=== PATIENT | female | born 1965 | race Caucasian/White ===

== ENCOUNTER 2017-05-28 15:46 | Observation (INO) | payer MEDICAID ==
[~2017-05-28] VITALS: Ht 170.2 cm; Wt 119.8 kg
[~2017-05-28 15:46] MED LIST: ATORVASTATIN CA10 M1 PO; CETIRIZINE HCL10 MG PO; FLEXERIL10 MG PO; FLONASE 50 MCG16 GM; LISINOPRIL-HCTZ 20-1 PO; MECLIZINE HYDRO25 MG PO; NAPROSYN 500MG500 MG PO; OMEPRAZOLE20 MG PO; PHENERGAN 25MG.25 M1 PO; SPRINTEC 35 MCG1 TAB PO
[2017-05-28 15:47] VITALS: BP 136/84
[2017-05-28 16:06] LABS: HEMOGLOBIN 14.1 g/dL (12.2-16.2); LYMPH # 3.3 K/mm3 (0.7-4.5); LYMPH % 31.6 % (10-50.0)
--- NOTE | 2017-05-28 16:08 | Emergency Room Report ---
History of Present Illness Time Seen by [id number] Presenting Problem in Triage Pt arrived:Walked Presenting Problem:PT C/O PAIN UNDER THE RIGHT ARM THAT GOES ACROSS HER CHEST THAT CAME ON SUDDENLY AROUND 1430. 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 N Clinical Suspician of Infection? N Mental Status: 1 - Regular (Normal Baseline) Sepsis Risk:Low Sepsis Risk Have you (or family members/close friends) recently traveled outside the [place]? N If Yes, where/when: Have you had exposure to infectious disease within the past month? N TB? Other? Specify: Patient with muscle spasm, sharp pain on right today, with brief indigestion, self-resolving; pain starts on the right and moves to substernal area. No vomiting or diaphoresis, no calf pain, no syncope or palpitations, no SOB. Reports dad with hx [place], patient has HTN and hyperlipidemia, does not smoke, does not have DM, is obese. No known hx CAD. Onset was 1430 today. No cough. ALLERGIES Coded Allergies: No Known Allergies (05/28/17) Home Medications Reported Medications Atorvastatin Calcium 10 MG PO DAILY #30 [LISINOPRIL-HCTZ 20-1] 1 TAB PO DAILY #30 History Medical History General CAD? No Angina: No GA: No Hypertension? Yes Hyperlipidemia? Yes CHF? No DVT? No PE? No COPD? No Asthma? No Anemia? No GERD? No Gastric ulcers? No GI Bleed? No Hernia? No Thyroid Problems? No Hypothyroidism? No CVA? No Seizures? No Diabetes? No Renal Insuffiency? No End Stage Renal Disease? No UTI? No Stones? No BPH? No GB Disease: Yes Nephritic Syndrome? No Asplenia? No Hepatitis? No Sickle Cell Disease? No Arthritis? No Migraines? No Cataracts? No Glaucoma? No MRSA? No HIV? No TB? No Anxiety? No Depression? No Cancer? 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 Hx LMP N/A Family History Family Hx Family Hx Insignificant No Diabetes Yes CAD Yes (dad [place]) Hypertension Yes Hyperlipidemia No Cancer Yes TB No Social History Smoking Hx Smoker: Never Smoker Tobacco: No Packs/day < 1 Pack Alcohol Alcohol: No Review of Systems All Other Systems Reviewed and Negative Cardiovascular see HPI Gastrointestinal see HPI Musculoskeletal see HPI Physical Exam Vital Signs Vital Signs Date Time Temp Pulse Resp B/P Pulse O2 O2 Flow FiO2 Ox Delivery Rate 05/28 1721 22 05/28 1715 61 16 132/72 95 05/28 1547 98.2 65 16 136/84 95 General Appearance normal appearance, WD/WN, no apparent distress Eye Exam - bilateral eye normal exam, bilateral eye PERRL, bilateral eye EOMI Neck normal inspection, non-tender, supple, full range of motion Respiratory Status Yes: trachea midline, chest symmetrical, non tender chest. No: respiratory distress, tender on palpation, use of accessory muscles, pain on inspiration, pain on expiration, productive cough, non productive cough. Lung Sounds bilateral: normal breath sounds, lungs clear. Cardiovascular normal exam, regular rate/rhythm, no peripheral edema, no gallop, no JVD, no murmur, no rub, normal peripheral pulses Peripheral Pulses Pulses normal Yes Gastrointestinal normal bowel sounds, normal exam, non tender, soft, no organomegaly, no pulsatile mass, no guarding, no rebound Extremities non-tender, normal range of motion, normal inspection, normal capillary refill, no calf tenderness, no pedal edema Strength 5 Upper Ext (L), 5 Upper Ext (R), 5 Lower Ext (L), 5 Lower Ext (R) Neurologic alert, normal exam, no motor/sensory deficits, oriented x 3 Glascow Coma Scale Glascow Coma Scale Response Value EYE response: 4 Spontaneously 4 MOTOR response: 6 OBEYS 6 VERBAL response: 5 Oriented & Converses 5 Total 15 Skin intact, normal color, warm/dry Lymphatic no adenopathy Medical Decision Making LABS/Meds/Orders Pt receiving controlled substance in ED? No Results/Orders Laboratory Tests 05/28/17 1600: Sodium 141, Potassium 4.0, Chloride 105, Carbon Dioxide 27, BUN 14, Creatinine 1.0, Estimated Creat Clear 123, Estimated GFR (MDRD) 58 L, Glucose 91, Calcium 8.8, Total Bilirubin 0.5, AST 27, ALT 33, Alkaline Phosphatase 61, Creatine Kinase 113, CK-MB (CK-2) Rel Index 0.4, CK and CKMB Interp < 0.5, Troponin I < 0.02, Total Protein 7.7, Albumin 4.0, Globulin 3.7 H, Albumin/Globulin Ratio 1.1, WBC 10.5, RBC 4.71, Hgb 14.1, Hct 42.7, MCV 90.5, RDW 14.4, Plt Count 229, MPV 9.0, Gran % 59.5, Gran # 6.3, Lymphocytes % 31.6, Monocytes % 6.1, Eosinophils % 2.3, Basophils % 0.6, Lymphocytes # 3.3, Monocytes # 0.6, Eosinophils # 0.2, Basophils # 0.1, PUBS MCHC 33.1, MCH 30.0 Current Medication Orders Sig/Aurelia Start time Last Medication Dose Route Stop Time Status Admin Morphine Sulfate 2 MG ONCE ONE 05/28 1730 DC IV 05/28 1731 Nitroglycerin 0.4 MG ONCE ONE 05/28 1730 DC 05/28 SL 05/28 1731 1721 Ondansetron HCl 4 MG ONCE ONE 05/28 1730 DC IV 05/28 1731 Nitroglycerin 0 .STK-MED ONE 05/28 1720 DC SL Aspirin 324 MG ONCE ONE 05/28 1630 DC 05/28 PO 05/28 1631 1628 Aspirin 0 .STK-MED ONE 05/28 1628 DC .ROUTE Sodium Chloride 10 ML PRN PRN 05/28 1600 AC IV 05/29 1556 Orders Procedure Date/time Status TROPONIN I 05/28 1830 Active Decision to admit 05/28 1728 Active ELECTROCARDIOGRAM REQUEST 05/28 1556 Active IV SALINE LOCK 05/28 1556 Active CBC WITH AUTO DIFF 05/28 1556 Complete CARDIAC ENZYMES 05/28 1556 Complete CHEM 12 PROFILE 05/28 1556 Complete 12 LEAD EKG-BESSON (INITIAL) 05/28 UNK Active XRAY/CT/US XRAY/CT/US XRAY chest XR interpretation by reviewed by me Xray Results normal/NAD, no infiltrates, normal heart size, no hematoma seen, normal lung inflation gautam Consult MD Physician Consult Time Called 1718 Reason Pt. Condition Progress ED Progress Notes Date 05/28/17 Time 1741 Comment Positive relief with NTG SL x 1 Departure Departure Time of Disposition 1741 Disposition Still a Patient Clinical Impression Primary Impression: Chest pain Qualifiers: Chest pain type: unspecified Qualified Code: R07.9 - Chest pain, unspecified Condition STABLE Referrals ASIA GUTIERREZ (Family) ED Critical Care Critical Care No
--- NOTE | 2017-05-28 16:08 | Emergency Room Report ---
History of Present Illness Time Seen by [id number] Presenting Problem in Triage Pt arrived:Walked Presenting Problem:PT C/O PAIN UNDER THE RIGHT ARM THAT GOES ACROSS HER CHEST THAT CAME ON SUDDENLY AROUND 1430. 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 N Clinical Suspician of Infection? N Mental Status: 1 - Regular (Normal Baseline) Sepsis Risk:Low Sepsis Risk Have you (or family members/close friends) recently traveled outside the [place]? N If Yes, where/when: Have you had exposure to infectious disease within the past month? N TB? Other? Specify: Patient with muscle spasm, sharp pain on right today, with brief indigestion, self-resolving; pain starts on the right and moves to substernal area. No vomiting or diaphoresis, no calf pain, no syncope or palpitations, no SOB. Reports dad with hx [place], patient has HTN and hyperlipidemia, does not smoke, does not have DM, is obese. No known hx CAD. Onset was 1430 today. No cough. ALLERGIES Coded Allergies: No Known Allergies (05/28/17) Home Medications Reported Medications Atorvastatin Calcium 10 MG PO DAILY #30 [LISINOPRIL-HCTZ 20-1] 1 TAB PO DAILY #30 History Medical History General CAD? No Angina: No NM: No Hypertension? Yes Hyperlipidemia? Yes CHF? No DVT? No PE? No COPD? No Asthma? No Anemia? No GERD? No Gastric ulcers? No GI Bleed? No Hernia? No Thyroid Problems? No Hypothyroidism? No CVA? No Seizures? No Diabetes? No Renal Insuffiency? No End Stage Renal Disease? No UTI? No Stones? No BPH? No GB Disease: Yes Nephritic Syndrome? No Asplenia? No Hepatitis? No Sickle Cell Disease? No Arthritis? No Migraines? No Cataracts? No Glaucoma? No MRSA? No HIV? No TB? No Anxiety? No Depression? No Cancer? 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 N/A Family History Family Hx Family Hx Insignificant No Diabetes Yes CAD Yes (dad [place]) Hypertension Yes Hyperlipidemia No Cancer Yes TB No Social History Smoking Hx Smoker: Never Smoker Tobacco: No Packs/day < 1 Pack Alcohol Alcohol: No Review of Systems All Other Systems Reviewed and Negative Cardiovascular see HPI Gastrointestinal see HPI Musculoskeletal see HPI Physical Exam Vital Signs Vital Signs Date Time Temp Pulse Resp B/P Pulse O2 O2 Flow FiO2 Ox Delivery Rate 05/28 1721 22 05/28 1715 61 16 132/72 95 05/28 1547 98.2 65 16 136/84 95 General Appearance normal appearance, WD/WN, no apparent distress Eye Exam - bilateral eye normal exam, bilateral eye PERRL, bilateral eye EOMI Neck normal inspection, non-tender, supple, full range of motion Respiratory Status Yes: trachea midline, chest symmetrical, non tender chest. No: respiratory distress, tender on palpation, use of accessory muscles, pain on inspiration, pain on expiration, productive cough, non productive cough. Lung Sounds bilateral: normal breath sounds, lungs clear. Cardiovascular normal exam, regular rate/rhythm, no peripheral edema, no gallop, no JVD, no murmur, no rub, normal peripheral pulses Peripheral Pulses Pulses normal Yes Gastrointestinal normal bowel sounds, normal exam, non tender, soft, no organomegaly, no pulsatile mass, no guarding, no rebound Extremities non-tender, normal range of motion, normal inspection, normal capillary refill, no calf tenderness, no pedal edema Strength 5 Upper Ext (L), 5 Upper Ext (R), 5 Lower Ext (L), 5 Lower Ext (R) Neurologic alert, normal exam, no motor/sensory deficits, oriented x 3 Glascow Coma Scale Glascow Coma Scale Response Value EYE response: 4 Spontaneously 4 MOTOR response: 6 OBEYS 6 VERBAL response: 5 Oriented & Converses 5 Total 15 Skin intact, normal color, warm/dry Lymphatic no adenopathy Medical Decision Making LABS/Meds/Orders Pt receiving controlled substance in ED? No Results/Orders Laboratory Tests 05/28/17 1600: Sodium 141, Potassium 4.0, Chloride 105, Carbon Dioxide 27, BUN 14, Creatinine 1.0, Estimated Creat Clear 123, Estimated GFR (MDRD) 58 L, Glucose 91, Calcium 8.8, Total Bilirubin 0.5, AST 27, ALT 33, Alkaline Phosphatase 61, Creatine Kinase 113, CK-MB (CK-2) Rel Index 0.4, CK and CKMB Interp < 0.5, Troponin I < 0.02, Total Protein 7.7, Albumin 4.0, Globulin 3.7 H, Albumin/Globulin Ratio 1.1, WBC 10.5, RBC 4.71, Hgb 14.1, Hct 42.7, MCV 90.5, RDW 14.4, Plt Count 229, MPV 9.0, Gran % 59.5, Gran # 6.3, Lymphocytes % 31.6, Monocytes % 6.1, Eosinophils % 2.3, Basophils % 0.6, Lymphocytes # 3.3, Monocytes # 0.6, Eosinophils # 0.2, Basophils # 0.1, PUBS MCHC 33.1, MCH 30.0 Current Medication Orders Sig/Aurelia Start time Last Medication Dose Route Stop Time Status Admin Morphine Sulfate 2 MG ONCE ONE 05/28 1730 DC IV 05/28 1731 Nitroglycerin 0.4 MG ONCE ONE 05/28 1730 DC 05/28 SL 05/28 1731 1721 Ondansetron HCl 4 MG ONCE ONE 05/28 1730 DC IV 05/28 1731 Nitroglycerin 0 .STK-MED ONE 05/28 1720 DC SL Aspirin 324 MG ONCE ONE 05/28 1630 DC 05/28 PO 05/28 1631 1628 Aspirin 0 .STK-MED ONE 05/28 1628 DC .ROUTE Sodium Chloride 10 ML PRN PRN 05/28 1600 AC IV 05/29 1556 Orders Procedure Date/time Status TROPONIN I 05/28 1830 Active Decision to admit 05/28 1728 Active ELECTROCARDIOGRAM REQUEST 05/28 1556 Active IV SALINE LOCK 05/28 1556 Active CBC WITH AUTO DIFF 05/28 1556 Complete CARDIAC ENZYMES 05/28 1556 Complete CHEM 12 PROFILE 05/28 1556 Complete 12 LEAD EKG-BESSON (INITIAL) 05/28 UNK Active XRAY/CT/US XRAY/CT/US XRAY chest XR interpretation by reviewed by me Xray Results normal/NAD, no infiltrates, normal heart size, no hematoma seen, normal lung inflation gautam Consult MD Physician Consult Time Called 1712 Reason Pt. Condition Progress ED Progress Notes Date 05/28/17 Time 1741 Comment Positive relief with NTG SL x 1 Departure Departure Time of Disposition 1741 Disposition Still a Patient Clinical Impression Primary Impression: Chest pain Qualifiers: Chest pain type: unspecified Qualified Code: R07.9 - Chest pain, unspecified Condition STABLE Referrals ASIA GUTIERREZ (Family) ED Critical Care Critical Care No
[2017-05-28 16:39] LABS: BUN 14 mg/dL (7-18); GFR (ESTIMATED) 58 ML/MIN (59-)
--- NOTE | 2017-05-28 17:07 | RADIOLOGY REPORT PS360 ---
CHEST(2 VIEWS-NOT PORTABLE) HISTORY: Right-sided chest pain PAIN UNDER RIGHT ARM ORDERING PHYSICIAN: Angelica Rollins MD PATIENT AGE: 51 years COMPARISON: 06/25/2015 FINDINGS: The cardiomediastinal silhouette and pulmonary vascularity are within normal limits. The lungs are clear without infiltrates, suspicious nodules, or pleural effusions. No acute bony abnormalities. IMPRESSION: Negative chest, no acute finding
[2017-05-28 19:04] VITALS: BP 115/87
[2017-05-28 19:35] VITALS: BP 106/72
[2017-05-28 20:13] VITALS: BP 106/72
[2017-05-28] MEDS ORDERED: METFORMIN ER500 MG PO (20:25)
[2017-05-28] MEDS ORDERED: LISINOPRIL20 MG PO (23:32)
[2017-05-29 00:04] VITALS: BP 120/52
[2017-05-29 04:47] VITALS: BP 100/54
--- NOTE | 2017-05-29 07:29 | PHARMACY CLINIC NOTE ---
Patient Demographics Patient Demographics Admission date: 05/28/17 Date: 05/29/17 Time: 07 Allergies Coded Allergies: No Known Allergies (05/28/17) HEIGHT- FT: 5 IN: 7.00 K.807 VTE General Information Labs: Laboratory Tests 05/28 1600 Hematology Hgb (12.2 - 16.2 g/dL) 14.1 Hct (37.0 - 47.0 %) 42.7 Plt Count (142 - 424 K/mm3) 229 Disclaimer The following section includes nursing documentation that has been pulled in for pharmacy review. Patient's VTE score: 3 Patient's VTE Risk: LOW RISK Clinical trial participant? No VTE prophylaxis [id number] VTE prophylaxis ordered? Yes Type of prophylaxis/treatment: PRIMO at 0729
[2017-05-29 08:14] LABS: HEMOGLOBIN 13.5 g/dL (12.2-16.2); LYMPH # 2.4 K/mm3 (0.7-4.5); LYMPH % 33.8 % (10-50.0)
[2017-05-29 08:30] VITALS: BP 121/83
[2017-05-29] MEDS ORDERED: ASPIR-LOW81 MG PO (09:18)
--- NOTE | 2017-05-29 09:41 | Discharge Summary Standard ---
Demographics: Admit date: 05/29/17 Chief complaint: right axillary pain/chest pain PRIMARY DIAGNOSIS: CHEST PAIN Allergies: Coded Allergies: No Known Allergies (05/28/17) History of present illness: History of present illness: 51 year old white female with a history of HTN, hyperlipidemia and pre-diabetes presented to the ED with right axillary/chest pain that started when she was sitting in her car waiting to pick her grandchild up from school. She reports pain escalating over the next couple of hours. She called her PCP who advised her to come to the ED for evaluation. She reports pain originated in right axillary region and radiated towards her chest. No associated shortness of breath or diaphoresis. Patient has been going to the gym for over a month. She has been on the treadmill multiple times with no shortness or breath and chest discomfort. She denies any exertional symptoms. Most recent HA1C was 6. Patient was admitted to acute care for further evaluation. Past medical history: Family HX Diabetes Yes CAD Yes (dad [place]) Hypertension Yes Hyperlipidemia No Cancer Yes TB No Immunization HX DT/Tetanus 5-10 Years Ago Flu UNKNOWN Pneumonia NEVER TB Test in last year No General CAD? No Angina: No [place]: No Hypertension? Yes Hyperlipidemia? Yes CHF? No DVT? No PE? No COPD? No Asthma? No Anemia? No GERD? No Gastric ulcers? No GI Bleed? No Hernia? No Thyroid Problems? No Hypothyroidism? No CVA? No Seizures? No Diabetes? No Renal Insuffiency? No UTI? No Stones? No BPH? No GB Disease: Yes Nephritic Syndrome? No Asplenia? No Hepatitis? No Sickle Cell Disease? No Arthritis? No Migraines? No Cataracts? No Glaucoma? No MRSA? No HIV? No TB? No Anxiety? No Depression? No Cancer? No More? 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 No Patient's support system is good Review of systems: Constitutional No: no symptoms reported. Eyes No: no symptoms reported. Ears, Nose, Mouth, Throat No no symptoms reported Respiratory No: no symptoms reported. Cardiovascular see HPI Gastrointestinal/Abdominal No no symptoms reported Genitourinary No: no symptoms reported. Musculoskeletal No: no symptoms reported. Skin No: no symptoms reported. Neurological No: no symptoms reported. Psychiatric No: no symptoms reported. Exam: Lab data for last 24 hours: Laboratory Tests 05/29/17 0636: Sodium 141, Potassium 4.3, Chloride 106, Carbon Dioxide 28, BUN 14, Creatinine 1.0, Estimated Creat Clear 123, Estimated GFR (MDRD) 58 L, Glucose 94, Calcium 8.5, WBC 7.0, RBC 4.44, Hgb 13.5, Hct 41.2, MCV 92.8, RDW 14.5, Plt Count 190, MPV 9.5, Gran % 55.1, Gran # 3.9, Lymphocytes % 33.8, Monocytes % 7.1, Eosinophils % 3.4, Basophils % 0.5, Lymphocytes # 2.4, Monocytes # 0.5, Eosinophils # 0.2, Basophils # 0.0, PUBS MCHC 32.6, MCH 30.3 05/28/17 2058: Troponin I < 0.02 05/28/17 1828: Troponin I < 0.02 05/28/17 1600: Sodium 141, Potassium 4.0, Chloride 105, Carbon Dioxide 27, BUN 14, Creatinine 1.0, Estimated Creat Clear 123, Estimated GFR (MDRD) 58 L, Glucose 91, Calcium 8.8, Total Bilirubin 0.5, AST 27, ALT 33, Alkaline Phosphatase 61, Creatine Kinase 113, CK-MB (CK-2) Rel Index 0.4, CK and CKMB Interp < 0.5, Troponin I < 0.02, Total Protein 7.7, Albumin 4.0, Globulin 3.7 H, Albumin/Globulin Ratio 1.1, WBC 10.5, RBC 4.71, Hgb 14.1, Hct 42.7, MCV 90.5, RDW 14.4, Plt Count 229, MPV 9.0, Gran % 59.5, Gran # 6.3, Lymphocytes % 31.6, Monocytes % 6.1, Eosinophils % 2.3, Basophils % 0.6, Lymphocytes # 3.3, Monocytes # 0.6, Eosinophils # 0.2, Basophils # 0.1, PUBS MCHC 33.1, MCH 30.0 Admission vital signs: 1ST Vital Signs Result Date Time Pulse Ox 95 05/28 1547 B/P 136/84 05/28 1547 Temp 98.2 05/28 1547 Pulse 65 05/28 1547 Resp 16 05/28 1547 O2 Delivery ROOM AIR 05/28 1904 Exam General appearance: normal appearance, alert, awake Eyes: anicteric ENT: mucous membranes moist Neck: non-tender, no carotid bruit, no JVD Cardiovascular: normal sinus rhythm, regular rate & rhythm, no murmur, normal peripheral pulses, no peripheral edema, no rub, no gallop Respiratory: clear to auscultation, chest non-tender, good air movement ABD: non-distended, normal bowel sounds, no rebound, soft, no tenderness Genitourinary: no dysuria, no hematuria Extremities: moves all, tenderness right anterior axillary line Musculoskeletal: equal muscle strength Skin: dry, intact 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 Telemetry was placed which was uneventful. Serial enzymes and EKG's were unremarkable. She has not had any further axillary or chest discomfort since admission. Echo was obtained and preliminary report is unremarkable with EF 55%. She has tenderness in right axillary region which leads me to believe her symptoms are musculoskeletal in nature. Given her medical history and + family history of CAD will arrange for outpatient stress. Discharge home with Cardiolite GXT as outpatient. Start low dose aspirin. See medication reconciliation for complete list. FU with PCP on Friday. Discussed symptoms of anginal pain that warrant urgent FU. Medications Medications: Discharge meds are as noted. Follow up Follow up in office in: 4 DAYS with: ASIA GUTIERREZ at 0940
[2017-05-29 10:12] VITALS: BP 121/83
--- NOTE | 2017-05-30 16:43 | RADIOLOGY REPORT PS360 ---
PROCEDURE: 2-D M-mode and color Doppler study INDICATIONS FOR THE TEST: Chest pain+ COPD Heart Murmur Tobacco Smoking Palpitations Fatigue Syncope Edema Hypertension+Diabetes Mellitus Rheumatic Fever SOB+BOYCE Obesity Hyperlipidemia Family History HD Additional History PATIENT INFORMATION HEIGHT: 67 WEIGHT:265 GENDER: Female B/P: 2-D/M-MODE INTERPRETATION: 2-D MEASUREMENTS OBSERVED VALUES IN CMS Right Ventricular Dimension (RVDd) 2.1 Interventricular Septum (Thickness)(IVsd) 1.3 Left Ventricular Internal Dimensions(LVIDd) 4.3 Left Ventricular Posterior Wall (Thickness)(LVPWd) 0.9 Aortic Root 3.4 Aortic Cusp Separation 2.0 Left Atrial Dimensions (LAD) 4.2 2D 1. Left atrium is mildly enlarged, left ventricle is normal size, there is mild concentric left ventricular hypertrophy present, visually estimated ejection fraction of 55% with no obvious regional wall motion abnormality. 2. The right atrium and right ventricle are normal size and contractility. 3. The aortic valve is minimally thickened and fibrosed. 4. The mitral and tricuspid valve leaflets are minimally thickened. 5. The pulmonic valve is poorly visualized. 6. No significant pericardial effusion noted. DOPPLER INTERROGATION: Doppler interrogation of the aortic mitral and tricuspid valve reveals presence of mild mitral and tricuspid regurgitation, grade 1 diastolic dysfunction seen without tissue Doppler evidence of raised left atrial pressure. CONCLUSION: 1. Left atrium is mildly enlarged, normal left ventricular size, mild concentric left ventricular hypertrophy, visually estimated ejection fraction of 55% with no obvious regional wall motion abnormality, grade 1 diastolic dysfunction seen without tissue Doppler evidence of raised left atrial pressure. 2. Mild mitral and tricuspid regurgitation. 3. No significant pericardial effusion noted.
== END 2017-05-29 09:55 | disposition home or self-care (01) ==
LOC: ER 15:46 → 2ND 17:33 → ER 17:33 → 2ND 18:32
PROVIDERS: Emergency Medicine
DX: R07.9 Chest pain, unspecified (principal); I10 Essential (primary) hypertension
CPT/HCPCS: G0378; J2405

== ENCOUNTER → 2017-06-18 | Outpatient (CLI) | payer SELFPAY ==
[~2017-06-18] MED LIST changes: +ASPIR-LOW81 MG PO; +LISINOPRIL20 MG PO; +METFORMIN ER500 MG PO
--- NOTE | 2017-06-19 09:17 | RADIOLOGY REPORT PS360 ---
CT CALCIUM SCORING W/3D CHEST PAIN, AP, DM, HTN ORDERING PHYSICIAN 51 years COMPARISON: None FINDINGS: Coronary calcium score 0 indicating a moderate plaque burden with high cardiovascular disease risk. Limited images submitted of the chest for the calcium score shows normal caliber proximal ascending aorta 3.4cm & some chronic pulmonary changes IMPRESSION: . Calcium score = 0 No identifiable calcified atherosclerotic plaque Implies Very low cardiovascular disease risk
== END ==
LOC: RAD 14:57
DX: R07.9 Chest pain, unspecified (principal); I20.9 Angina pectoris, unspecified; E11.9 Type 2 diabetes mellitus without complications; I10 Essential (primary) hypertension; E78.5 Hyperlipidemia, unspecified

== ENCOUNTER → 2017-06-20 | Outpatient (CLI) | payer MEDICAID ==
--- NOTE | 2017-06-20 13:30 | RADIOLOGY REPORT PS360 ---
History and Indications: Hypertension, diabetes, chest pain, and fatigue Procedure: Patient exercised on Eulogio protocol 6 minutes and 40 seconds, resting heart rate was 70 bpm, resting blood pressure 111/58, with exercise maximum heart rate achieved was 1 49 bpm 85% of the maximum predicted heart rate and a blood pressure was 145/85. Test was started due to shortness of breath, patient denied any complained of chest pain. Patient has adequate exercise capacity achieved 7 mets of workload on treadmill, the blood pressure response to exercise was adequate. Electrocardiogram: Resting electrocardiogram showed sinus rhythm, with exercise there is 0.[address] segment depression noted from the baseline EKG, the exercise Myoview is borderline for ischemia. Cardiac stress and resting SPECT images: Cardiac stress and rest SPECT images were obtained using technetium 99 Myoview 10.4 mCi at rest and 30.0 mCi at stress, gated SPECT further analysis of segmental wall motion and calculation of ejection fraction also done. Cardiac stress and rest SPECT images show uniform myocardial activity, without any segmental perfusion abnormality. Computer derived ejection fraction is 65% with no obvious regional wall motion abnormality, right ventricle is normal size and contractility. Conclusion: 1. The EKG portion of the exercise Myoview is borderline for ischemia. Has adequate exercise capacity achieved 7mets of workload on treadmill, the blood pressure response to exercise was adequate. Test was stopped due to shortness of breath denied any complained of chest pain. 2. No obvious scintigraphic evidence of reversible ischemia seen at this level of exercise, computer derived ejection fraction is 65% with no obvious regional wall motion abnormality, right ventricle is normal size and contractility.
== END ==
LOC: RAD 06:57
DX: R07.9 Chest pain, unspecified (principal); I48.0 Paroxysmal atrial fibrillation; I10 Essential (primary) hypertension; E11.9 Type 2 diabetes mellitus without complications; E78.5 Hyperlipidemia, unspecified
CPT/HCPCS: A9502